=== PATIENT | female | born 1960 | race Caucasian/White ===

== ENCOUNTER → 2018-03-07 14:58 | Outpatient (CLI) | payer OTHER, SELFPAY ==
[2018-03-07 16:14] LABS: Vitamin D,25 Hydroxy 24.9 ng/mL (29.95-100.01)
[2018-03-07 16:16] LABS: T4 Free Direct 1.16 ng/dL (0.76-1.46); Thyroid Stim Hormone (TSH) 0.66 uIU/mL (0.358-3.74)
== END ==
PROVIDERS: Family Provider Family Medicine; PCP Family Medicine; Referring Provider Nurse Practitioner; Visit Provider Nurse Practitioner
DX: E03.9 Hypothyroidism, unspecified (principal); E55.9 Vitamin D deficiency, unspecified
CPT/HCPCS: 36415; 82306; 84439; 84443

== ENCOUNTER → 2018-06-09 14:31 | Outpatient (CLI) | payer OTHER, SELFPAY ==
--- NOTE | 2018-06-09 14:34 | BI_ITS ---
MAMMOGRAPHY - BILATERAL SCREENING REASON FOR EXAM: Female, 58 years old. Routine annual screening examination. PERTINENT HISTORY: Grandmother with breast cancer. TECHNIQUE: Digital bilateral breast ramiro (3D mammographic acquisition) in the CC and MLO projections. 2-D mediolateral oblique (MLO) and craniocaudad (CC) views of both breasts were obtained. CAD: Full Field Digital Mammography with Computer Added Detection was performed. COMPARISON: Comparison is made with prior study dated April 26, 2017 and April 24, 2016. FINDINGS: Breast Composition: The breasts are heterogeneously dense, which may obscure small masses. There are no dominant masses or suspicious calcifications. No other significant abnormalities are identified. There has been no significant change since the prior study. BI/SCREENING MAMM (CAD), BILAT IMPRESSION: Stable bilateral screening mammogram. Yearly follow-up mammogram recommended. (A) ASSESSMENT CATEGORY: BIRADS Category 1: Negative. A letter regarding these results will be sent to the patient by the facility within 30 days. Approximately 10% of breast cancers are not detected by mammography. A normal mammogram should not delay biopsy of a clinically suspicious abnormality. [id number] Electronically Signed: Orville Hammond MD at 9:13 EST Tel [phone], Service support ,
== END ==
PROVIDERS: Family Provider Family Medicine; PCP Family Medicine; Visit Provider Family Medicine
DX: Z12.31 Encounter for screening mammogram for malignant neoplasm of breast (principal)
CPT/HCPCS: 77063; 77067

== ENCOUNTER → 2018-07-07 13:45 | Outpatient (CLI) | payer OTHER, SELFPAY ==
--- NOTE | 2018-07-07 | ASPS_PTH ---
PATIENT: JAY ESTEVES [facility] U#:[id number] AGE/SX: 64/F ROOM: RE07/07/[address]: Dr. Akil Murillo MD : 1960 BED: DIS: SPEC #: [id number] RECD: 07/08/18 09:33 STATUS: NAEL EARLENE #: [id number] BETSY: 07/07/18 00:[address]: Akil Murillo DEPT: CYTOLOGY RECD BY: Fahad Jackson ENTERED: 07/08/18 09:33 SP TYPE: ASPIRATION OTHR DR: Dr. Mirna Abbott MD Tissues: Thyroid gland, NOS Procedures: Special Stain Group II Cytology Other HEADER OPERATION: Ultrasound-guided fine needle aspiration right thyroid PRE-OP DIAGNOSIS: Nontoxic multinodular goiter E04.2 TISSUE SUBMITTED: Fine needle aspiration right thyroid slides x12 DIAGNOSIS CYTOLOGY Right thyroid, ultrasound-guided FNA (smears): Suggestive of benign colloid nodule with cystic changes. See cytology study and comment. SJ:rg 07/11/18 COMMENT Correlation with clinical, radiologic findings and appropriate follow up are necessary. CYTOLOGY STUDY Slides are reviewed. The specimen is limited in evaluation due to lack of adequate number of follicular cells. The specimen predominantly consists of numerous macrophages, colloid and a few clusters of benign follicular cells. CYTOLOGY GROSS Received are 12 smears labeled with the patient's name and designated per the requisition as right thyroid. Submitted for staining. 07/08/18 TC:5 CPT: 08851
[2018-07-07 13:50] VITALS: BMI 28.8
== END ==
PROVIDERS: Family Provider Family Medicine; PCP Family Medicine; Referring Provider Surgery; Visit Provider Surgery
DX: E04.2 Nontoxic multinodular goiter (principal)
CPT/HCPCS: 88161; 88313

== ENCOUNTER → 2018-07-27 13:46 | Outpatient (CLI) | payer OTHER, SELFPAY ==
[2018-07-07 13:50] VITALS: BMI 28.8
--- NOTE | 2018-07-27 | ASPIG_PTH ---
PATIENT: JAY ESTEVES LOC: [facility]#:[id number] AGE/SX: 64/F ROOM: RE07/27/[address]: Dr. Akil Murillo MD : 1960 BED: DIS: SPEC #: [id number] RECD: 07/27/18 15:00 STATUS: NAEL HILLMANEllen #: [id number] BETSY: 07/27/18 00:[address]: Akil Murillo DEPT: CYTOLOGY RECD BY: Toni Florez ENTERED: 07/27/18 15:08 SP TYPE: ASP OUT OTHR DR: Dr. Mirna Abbott MD Tissues: Thyroid gland, NOS Procedures: FNA Specimen Adequacy Special Stain Group II Surgery Specimen Level IV Cytology Other HEADER OPERATION: Ultrasound-guided right thyroid biopsy/FNA PRE-OP DIAGNOSIS: TISSUE SUBMITTED: FNA right thyroid DIAGNOSIS CYTOLOGY Right thyroid, ultrasound guided FNA, direct smears and cell block: Negative for malignant cells. Findings suggestive of benign colloid nodule with cystic change (nodular goiter). See cytology study and comment. CE:tim 07/28/18 COMMENT The specimen is evaluated at the time of FNA by Dr. Rodriguez. Immediate Evaluation = Adequate for evaluation. Follicular cells present. Correlation with clinical, radiologic findings and appropriate follow up are necessary. Case has been reviewed in consultation with Dr. Rodriguez who concurs with the above diagnosis. IDC:BRIDGETTE CYTOLOGY STUDY Slides are reviewed. Specimen is satisfactory for evaluation. Direct smears demonstrate numerous groups of benign follicular cells, histiocytes, abundant colloid and peripheral blood. CYTOLOGY GROSS Received in three passes is 0.3 ml of bloody fluid labeled with the patient's name, and designated right thyroid. Six imprints and five paps are made from the submitted fluid and the rest is added to CytoLyt for cell block preparation. Submitted for cytology study. / BRIDGETTE:tim 07/27/18 TC: 5 CPT: 78006, 17006, 32074
--- NOTE | 2018-07-27 13:54 | US_ITS ---
CLINICAL HISTORY: Female, 58 years old. Right thyroid nodule biopsy. Under direct sonographic guidance, the surgeon performed 3 aspiration biopsies of the 1.3 cm x 1 cm x 0.7 cm nodule in the inferior aspect of the right lobe of the thyroid. US/FNA 1st Biopsy w/ US IMPRESSION: Ultrasound guided biopsy of the thyroid nodule in the inferior lobe. Electronically Signed: Orville Hammond, at 14:47 EST , Service support ,
== END ==
PROVIDERS: Family Provider Family Medicine; PCP Family Medicine; Referring Provider Surgery; Visit Provider Surgery
DX: E03.9 Hypothyroidism, unspecified (principal)
CPT/HCPCS: 10005; 88161; 88172; 88305; 88313

== ENCOUNTER → 2019-06-12 16:16 | Outpatient (CLI) | payer OTHER, SELFPAY ==
[2018-07-07 13:50] VITALS: BMI 28.8
--- NOTE | 2019-06-12 16:22 | BI_ITS ---
MAMMOGRAPHY - BILATERAL SCREENING REASON FOR EXAM: Female, 59 years old. Routine annual screening examination. PERTINENT HISTORY: Grandmother with breast cancer. TECHNIQUE: Digital bilateral breast robel (3D mammographic acquisition) in the CC and MLO projections. 2-D mediolateral oblique (MLO) and craniocaudad (CC) views of both breasts were obtained. CAD: Full Field Digital Mammography with Computer Added Detection was performed. COMPARISON: Comparison is made with prior study dated June 09, 2018 and April 26, 2017. FINDINGS: Breast Composition: The breasts are heterogeneously dense, which may obscure small masses. There are no dominant masses or suspicious calcifications. No other significant abnormalities are identified. There has been no significant change since the prior study. BI/SCREEN MAMM (CAD) W/ROBEL BILAT IMPRESSION: Stable bilateral screening mammogram. Yearly follow-up mammogram recommended. (A) ASSESSMENT CATEGORY: BIRADS Category 1: Negative. A letter regarding these results will be sent to the patient by the facility within 30 days. Approximately 10% of breast cancers are not detected by mammography. A normal mammogram should not delay biopsy of a clinically suspicious abnormality. [id number] Electronically Signed: Orville Hammond, at 8:26 EST , Service support ,
== END ==
PROVIDERS: Family Provider Family Medicine; PCP Family Medicine; Referring Provider Family Medicine; Visit Provider Family Medicine
DX: Z12.31 Encounter for screening mammogram for malignant neoplasm of breast (principal)
CPT/HCPCS: 77063; 77067

== ENCOUNTER → 2019-06-19 16:44 | Outpatient (CLI) | payer OTHER, SELFPAY ==
[2018-07-07 13:50] VITALS: BMI 28.8
[2019-06-19 17:49] LABS: T4 Free Direct 1.17 ng/dL (0.76-1.46); Thyroid Stim Hormone (TSH) 1.67 uIU/mL (0.358-3.74)
== END ==
PROVIDERS: PCP Family Medicine; Referring Provider Internal Medicine Endocrinology, Diabetes & Metabolism; Visit Provider Internal Medicine Endocrinology, Diabetes & Metabolism
DX: E03.9 Hypothyroidism, unspecified (principal)
CPT/HCPCS: 36415; 84439; 84443

== ENCOUNTER → 2019-10-04 16:03 | Outpatient (CLI) | payer OTHER, SELFPAY ==
[2019-06-19 16:50] VITALS: BMI 28.8
--- NOTE | 2019-10-04 16:06 | RAD_ITS ---
STUDY: X-RAY - RIGHT FOOT CLINICAL: Female, 59 years old. Pain. TECHNIQUE: 3 weightbearing view(s) of the foot. COMPARISON: None. FINDINGS: There is a plantar calcaneal spur. Normal talus and tarsal bones. Mild arthrosis of the visualized subtalar, talonavicular, calcaneocuboid, tarsal and tarsometatarsal articulations. Normal metatarsi. Normal metatarsophalangeal joint of the great toe. Normal tibial and fibular sesamoid bones. Normal interphalangeal joint of the great toe. Normal phalanges of the great toe. Normal second through fifth metatarsophalangeal joints. Normal interphalangeal joints of the lesser toes. There is a remote fracture of the medial base of the second proximal phalanx. The remainder of the phalanges of the lesser toes appear grossly normal. The soft tissue structures are unremarkable. RAD/Foot min 3 Views IMPRESSION: Degenerative changes of the right foot. Electronically Signed: Ashvin Carpenter DO at 16:57 EDT Tel [phone], Service support ,
== END ==
PROVIDERS: PCP Family Medicine; Referring Provider Family Medicine; Visit Provider Family Medicine
DX: S92.414A Nondisplaced fracture of proximal phalanx of right great toe, initial encounter for closed fracture (principal); S92.514A Nondisplaced fracture of proximal phalanx of right lesser toe(s), initial encounter for closed fracture; S92.344A Nondisplaced fracture of fourth metatarsal bone, right foot, initial encounter for closed fracture; S90.31XA Contusion of right foot, initial encounter; S50.02XA Contusion of left elbow, initial encounter; M19.071 Primary osteoarthritis, right ankle and foot
CPT/HCPCS: 73630

== ENCOUNTER → 2019-12-29 16:21 | Outpatient (CLI) | payer OTHER, SELFPAY ==
[2019-06-19 16:50] VITALS: BMI 28.8
--- NOTE | 2019-12-29 16:24 | RAD_ITS ---
STUDY: X-RAY - LEFT ANKLE REASON FOR EXAM: Female, 59 years old. left ankle pain and swelling x 3 days, swelling got very bad yesterday -- no injury TECHNIQUE: 3 view(s) of the ankle. COMPARISON: None. FINDINGS: Normal visualized distal tibia and fibula. Normal medial and lateral malleoli. Normal tibiotalar articulation and ankle mortise. Normal visualized talus and calcaneus. Large plantar spur of the calcaneus. The visualized subtalar, talonavicular, calcaneocuboid and tarsal articulations are normal. Diffuse soft tissue swelling. RAD/Ankle min 3 Views IMPRESSION: Soft tissue injury without underlying fracture or dislocation. Large plantar spur of the calcaneus. Electronically Signed: Jessica Qureshi MD at 20:41 EDT , Service support ,
== END ==
PROVIDERS: PCP Family Medicine; Referring Provider Family Medicine; Visit Provider Family Medicine
DX: M25.572 Pain in left ankle and joints of left foot (principal)
CPT/HCPCS: 73610

== ENCOUNTER → 2020-03-18 16:25 | Outpatient (CLI) | payer OTHER, SELFPAY ==
[2019-06-19 16:50] VITALS: BMI 28.8
[2020-03-18 18:43] LABS: Vitamin D,25 Hydroxy 36.9 ng/mL
[2020-03-18 18:57] LABS: T4 Total, Thyroxin 10.1 ug/dL (4.8-13.9); Thyroid Stim Hormone (TSH) 1.35 uIU/mL (0.358-3.74)
[2020-03-21 21:35] LABS: HPV Reflexed? NOT INDICATED
== END ==
PROVIDERS: PCP Family Medicine; Visit Provider Family Medicine
DX: E03.9 Hypothyroidism, unspecified (principal); E55.9 Vitamin D deficiency, unspecified
CPT/HCPCS: 36415; 82306; 84436; 84443; 88175; G0145

== ENCOUNTER 2020-09-12 11:28 | Outpatient (RCR) | payer OTHER, SELFPAY ==
[2020-06-18 15:59] VITALS: BMI 31.1
== END 2020-11-05 23:59 ==
LOC: IMMUN 11:28
PROVIDERS: PCP Family Medicine; Referring Provider Family Medicine; Visit Provider Family Medicine
DX: Z23 Encounter for immunization (principal)
CPT/HCPCS: 0001A; 0002A; 91300

== ENCOUNTER → 2020-11-27 06:58 | Outpatient (CLI) | payer OTHER, SELFPAY ==
[2020-06-18 15:59] VITALS: BMI 31.1
--- NOTE | 2020-11-26 16:18 | BI_ITS ---
MAMMOGRAPHY - BILATERAL SCREENING REASON FOR EXAM: Female, 60 years old. Routine annual screening examination. PERTINENT HISTORY: Grandmother with breast cancer. TECHNIQUE: Digital bilateral breast robel (3D mammographic acquisition) in the CC and MLO projections. 2-D mediolateral oblique (MLO) and craniocaudad (CC) views of both breasts were obtained. CAD: Full Field Digital Mammography with Computer Added Detection was performed. COMPARISON: Comparison is made with prior study dated 06/12/2019 and 06/09/2018. FINDINGS: Breast Composition: The breasts are heterogeneously dense, which may obscure small masses. There are no dominant masses or suspicious calcifications. No other significant abnormalities are identified. There has been no significant change since the prior study. BI/SCRN MAMM (CAD)W/ROBEL BILAT IMPRESSION: Stable bilateral screening mammogram. Yearly follow-up mammogram recommended. (A) ASSESSMENT CATEGORY: BIRADS Category 1: Negative. A letter regarding these results will be sent to the patient by the facility within 30 days. Approximately 10% of breast cancers are not detected by mammography. A normal mammogram should not delay biopsy of a clinically suspicious abnormality. [id number] Electronically Signed: Orville Hammond MD at 8:07 EDT , Service support ,
== END ==
PROVIDERS: PCP Family Medicine; Referring Provider Family Medicine; Visit Provider Family Medicine
DX: Z12.31 Encounter for screening mammogram for malignant neoplasm of breast (principal); Z80.3 Family history of malignant neoplasm of breast
CPT/HCPCS: 77063; 77067

== ENCOUNTER → 2020-12-26 16:17 | Outpatient (CLI) | payer OTHER, SELFPAY ==
[2020-06-18 15:59] VITALS: BMI 31.1
[2020-12-26 17:11] LABS: Absolute Lymphocyte Count 2.23 X10^3/uL (0.83-4.51); Absolute Neutrophil Count 5.6 X10^3/uL (2.0-7.7); Basophil# 0.05 X10^3/uL; Basophil% 0.6 % (0-1); Eosinophil# 0.18 X10^3/uL; Eosinophils% 2.1 % (0-5); Hematocrit 39.7 % (37-47); Hemoglobin 12.9 g/dL (12.0-15.0); Lymphocyte # 2.23 X10^3/ul (0.83-4.51); Lymphocyte % 25.4 % (19-41); Mean Corp Hgb Conc 32.5 g/dL (32-36); Mean Corpuscular Hgb 29.8 pg (27.0-32.0); Mean Corpuscular Volume 91.7 fL (81-99); Mean Platelet Vol. 11.3 fl (6.2-12.0); Monocyte# 0.63 X10^3/uL; Monocyte% 7.2 % (0-10); NRBC Flagged by Analyzer 0 % (0-5); Neutrophil # 5.63 X10^3/uL (2.7-7.7); Neutrophil % 64.1 % (47-70); Platelet Count 300 K/mm3 (150-450); RBC Distribution Width SD 40.8 fl (35.1-43.9); Red Blood Count 4.33 M/mm3 (4.2-5.4); White Blood Count 8.8 K/mm3 (4.4-11.0)
[2020-12-26 17:44] LABS: Albumin, Serum 3.9 g/dL (3.2-5.0); Anion Gap 8 (5-15); BUN 14 mg/dL (7-18); BUN/Creat Ratio 21.5 RATIO (10-20); Calcium,Total 8.8 mg/dL (8.5-10.1); Chloride 106 mmol/L (98-107); Creatinine, Serum 0.65 mg/dL (0.55-1.02); EST Glomerular Filtration Rate 99 mL/min (>60); Est Glom Filt Rate - Afr Amer 119 mL/min (>60); Glucose 91 mg/dL (74-106); Potassium 3.5 mmol/L (3.5-5.1); Sodium Level 141 mmol/L (136-145)
== END ==
PROVIDERS: PCP Family Medicine; Referring Provider Physician Assistant Surgical; Visit Provider Physician Assistant Surgical
DX: Z01.812 Encounter for preprocedural laboratory examination (principal)
CPT/HCPCS: 36415; 80048; 82040; 85025

== ENCOUNTER → 2020-12-27 15:57 | Outpatient (CLI) | payer OTHER, SELFPAY ==
[2020-06-18 15:59] VITALS: BMI 31.1
--- NOTE | 2020-12-27 16:02 | EKG12_ITS ---
Test Reason : PREOP Blood Pressure : / mmHG Vent. Rate : 089 BPM Atrial Rate : 089 BPM P-R Int : 130 ms QRS Dur : 086 ms QT Int : 376 ms P-R-T Axes : 048 -05 011 degrees QTc Int : 457 ms Normal sinus rhythm Normal ECG Confirmed by JOLENE CAPONE, CARLOS ([id number]), digital editor YOSI MCFADDEN ([id number]) on 01/02/2021 1:17:41 PM Referred By: Nate Red Confirmed By:CARLOS FERNÁNDEZ MD
== END ==
PROVIDERS: PCP Family Medicine; Referring Provider Specialist; Visit Provider Specialist
DX: Z01.810 Encounter for preprocedural cardiovascular examination (principal)
CPT/HCPCS: 93005

== ENCOUNTER → 2021-03-19 15:34 | Outpatient (CLI) | payer OTHER, SELFPAY ==
[2021-03-19 18:02] LABS: T4 Total, Thyroxin 11.4 ug/dL (4.8-13.9); Thyroid Stim Hormone (TSH) 0.48 uIU/mL (0.358-3.74)
== END ==
PROVIDERS: PCP Family Medicine; Referring Provider Family Medicine; Visit Provider Family Medicine
DX: E03.9 Hypothyroidism, unspecified (principal)
CPT/HCPCS: 36415; 84436; 84443

== ENCOUNTER → 2021-09-25 | Outpatient (CLI) | payer BC, SELFPAY ==
[2021-09-25 17:27] LABS: Absolute Lymphocyte Count 2.15 X10^3/uL (0.83-4.51); Absolute Neutrophil Count 5.2 X10^3/uL (2.0-7.7); Basophil# 0.04 X10^3/uL; Basophil% 0.5 % (0-1); Eosinophil# 0.15 X10^3/uL; Eosinophils% 1.9 % (0-5); Hematocrit 39.9 % (37-47); Lymphocyte # 2.15 X10^3/ul (0.83-4.51); Lymphocyte % 26.7 % (19-41); Mean Corp Hgb Conc 32.6 g/dL (32-36); Mean Corpuscular Hgb 30.2 pg (27.0-32.0); Mean Corpuscular Volume 92.8 fL (81-99); Monocyte# 0.54 X10^3/uL; Monocyte% 6.7 % (0-10); NRBC Flagged by Analyzer 0 % (0-5); Neutrophil # 5.15 X10^3/uL (2.7-7.7); Neutrophil % 63.8 % (47-70); Platelet Count 313 K/mm3 (150-450); RBC Distribution Width CV 12.9 % (11.6-14.6); RBC Distribution Width SD 43.7 fl (35.1-43.9); White Blood Count 8.1 K/mm3 (4.4-11.0)
[2021-09-25 17:57] LABS: ALB/GLOB Ratio 0.9 RATIO (0.9-2.4); AST(SGOT) 23 U/L (15-37); Alanine Aminotransfer ALT/SGPT 43 U/L (13-56); Albumin, Serum 3.9 g/dL (3.2-5.0); Alkaline Phosphatase 79 U/L (45-117); Anion Gap 5 (5-15); BUN 11 mg/dL (7-18); CRP 4.74 mg/L (0.0-3.0); Calcium,Total 8.7 mg/dL (8.5-10.1); Chloride 106 mmol/L (98-107); Creatinine, Serum 0.69 mg/dL (0.55-1.02); EST Glomerular Filtration Rate 93 mL/min (>60); Est Glom Filt Rate - Afr Amer 112 mL/min (>60); Globulin 4.5 g/dL (2.2-4.2); Glucose 86 mg/dL (74-106); Potassium 3.7 mmol/L (3.5-5.1); Protein, Total 8.4 g/dL (6.4-8.2); Sodium Level 139 mmol/L (136-145); Uric Acid 5.7 mg/dL (2.6-6.0)
[2021-09-25 17:58] LABS: Erythrocyte Sedimentation Rate 23 mm/hr (0-30)
[2021-09-25 18:31] LABS: Hemoglobin A1c 5.5 % (3.8-5.6)
[2021-09-29 16:03] LABS: ANTINUCLEAR ANTIBODIES DIRECT Negative (Negative)
[2021-09-30 11:07] LABS: CCP IgG Antibodies 6 units (0-19)
== END | disposition home or self-care (01) ==
LOC: MTLAB 16:17
PROVIDERS: PCP Family Medicine; Referring Provider Podiatrist; Visit Provider Podiatrist
DX: M19.071 Primary osteoarthritis, right ankle and foot (principal); M19.072 Primary osteoarthritis, left ankle and foot
CPT/HCPCS: 36415; 80053; 82306; 83036; 84550; 85025; 85652; 86038; 86140; 86200; 86431

== ENCOUNTER → 2021-12-02 | Outpatient (CLI) | payer BC, SELFPAY ==
--- NOTE | 2021-12-02 16:37 | BI_ITS ---
MAMMOGRAPHY - BILATERAL SCREENING REASON FOR EXAM: Female, 61 years old. Routine annual screening examination. PERTINENT HISTORY: Grandmother with breast cancer. TECHNIQUE: Digital bilateral breast robel (3D mammographic acquisition) in the CC and MLO projections. 2-D mediolateral oblique (MLO) and craniocaudad (CC) views of both breasts were obtained. CAD: Full Field Digital Mammography with Computer Added Detection was performed. COMPARISON: Comparison is made with prior study dated 11/26/2020 and 06/12/2019. FINDINGS: Breast Composition: The breasts are heterogeneously dense, which may obscure small masses. There are no dominant masses or suspicious calcifications. No other significant abnormalities are identified. There has been no significant change since the prior study. BI/SCRN MAMM (CAD)W/ROBEL BILAT IMPRESSION: Stable bilateral screening mammogram. Yearly follow-up mammogram recommended. (A) ASSESSMENT CATEGORY: BIRADS Category 1: Negative. A letter regarding these results will be sent to the patient by the facility within 30 days. Approximately 10% of breast cancers are not detected by mammography. A normal mammogram should not delay biopsy of a clinically suspicious abnormality. [id number] Electronically Signed: Orville Hammond MD at 8:21 EDT ,
== END | disposition home or self-care (01) ==
LOC: OPBI 12-03 06:58
PROVIDERS: PCP Family Medicine; Referring Provider Family Medicine; Visit Provider Family Medicine
DX: Z12.31 Encounter for screening mammogram for malignant neoplasm of breast (principal); Z80.3 Family history of malignant neoplasm of breast
CPT/HCPCS: 77063; 77067

== ENCOUNTER → 2022-03-03 | Outpatient (CLI) | payer BC, SELFPAY ==
[2022-03-03 11:34] LABS: Absolute Lymphocyte Count 0.99 X10^3/uL (0.83-4.51); Absolute Neutrophil Count 11.7 X10^3/uL (2.0-7.7); Basophil# 0.04 X10^3/uL; Basophil% 0.3 % (0-1); Eosinophil# 0.01 X10^3/uL; Eosinophils% 0.1 % (0-5); Hematocrit 43.1 % (37-47); Hemoglobin 13.8 g/dL (12.0-15.0); Lymphocyte # 0.99 X10^3/ul (0.83-4.51); Lymphocyte % 7.5 % (19-41); Mean Corpuscular Hgb 30.2 pg (27.0-32.0); Mean Corpuscular Volume 94.3 fL (81-99); Mean Platelet Vol. 10.8 fl (6.2-12.0); Monocyte# 0.52 X10^3/uL; Monocyte% 3.9 % (0-10); NRBC Flagged by Analyzer 0 % (0-5); Neutrophil # 11.66 X10^3/uL (2.7-7.7); Neutrophil % 87.9 % (47-70); Platelet Count 313 K/mm3 (150-450); RBC Distribution Width CV 12.1 % (11.6-14.6); RBC Distribution Width SD 41.6 fl (35.1-43.9); Red Blood Count 4.57 M/mm3 (4.2-5.4); White Blood Count 13.3 K/mm3 (4.4-11.0)
== END | disposition home or self-care (01) ==
LOC: PAVLAB 11:20
PROVIDERS: PCP Family Medicine; Referring Provider Surgery; Visit Provider Surgery
DX: R10.9 Unspecified abdominal pain (principal); K92.1 Melena
CPT/HCPCS: 36415; 85025

== ENCOUNTER → 2022-03-06 | Outpatient (CLI) | payer BC, SELFPAY ==
--- NOTE | 2022-03-06 06:43 | CT_ITS ---
STUDY: CT ABDOMEN AND PELVIS WITH CONTRAST REASON FOR EXAM: Female, 61 years old. Abdominal pain -- Oral and IV contrast. Rectal bleeding and cramping x 5 days. RADIATION DOSAGE (If Supplied By Facility): CTDIvol = ( 16.34 ) mGy, DLP = ( 1239.06 ) mGycm TECHNIQUE: Transaxial images were obtained from the dome of the diaphragm to the symphysis pubis with oral contrast. Oral and amp; 100mL Isovue-300 was administered. Sagittal and coronal images were reconstructed. Individualized dose optimization techniques were used for this CT. COMPARISON: None. FINDINGS: The visualized lung bases are unremarkable. The visualized portions of the heart are within normal limits. There is decreased attenuation of the liver consistent with steatosis. Normal gallbladder and extrahepatic biliary system. Normal spleen. Normal pancreas. Normal bilateral adrenal glands. There is malrotation of the right kidney with the anterior facing of the renal pelvis. There is a 1.9 cm cyst in the upper pole of the left kidney. Normal visualized stomach. Normal small intestine. There is evidence of circumferential wall thickening and increased markings in the surrounding peritoneal fat involving the distal portion of the transverse colon in the left hemicolon. Colitis should be ruled out. There is also evidence of a multiple sigmoid diverticula. The appendix is visualized and appears normal. Normal abdominal aorta. Normal inferior vena cava. Normal retroperitoneum. Normal urinary bladder. There is a complex solid and cystic nodule in the left adnexa measuring 4.4 cm by 3.9 cm. This may represent a pedunculated fibroid. Correlation with ultrasound is recommended. Normal abdominal wall. There are degenerative changes of the visualized lumbar spine. There is loss of the normal lumbar lordosis. CT/Abdomen/Pelvis WITH Contrast IMPRESSION: Findings in keeping with a colitis of the distal transverse colon and left hemicolon. 4.4 cm x 3.9 cm complex solid and cystic nodule in the left adnexa. This may be related to either ovarian pathology or pedunculated fibroid. Correlation with ultrasound is recommended. Electronically Signed: Orville Hammond MD at 10:18 EDT ,
[2022-03-06 07:11] LABS: CREATININE FINGERSTICK < 0.9 mg/dL (0.55-1.02); EGFR FINGERSTICK > 60.0000 mL/min (>60)
== END | disposition home or self-care (01) ==
LOC: CT 06:37
PROVIDERS: PCP Family Medicine; Referring Provider Surgery; Visit Provider Surgery
DX: N83.292 Other ovarian cyst, left side (principal); K62.5 Hemorrhage of anus and rectum; R10.9 Unspecified abdominal pain
CPT/HCPCS: 74177; Q9967

== ENCOUNTER → 2022-03-13 | Outpatient (CLI) | payer BC, SELFPAY ==
--- NOTE | 2022-03-13 11:13 | US_ITS ---
STUDY: ULTRASOUND TRANSVAGINAL CLINICAL: Female, 61 years old. ADNEXAL MASS ON CT TECHNIQUE: Transvaginal COMPARISON: CT 03/06/2022 FINDINGS: Normal uterine size measuring 6.8 x 3.4 x 4.8 cm in maximal craniocaudal dimension. Endometrial thickness 3 mm. There is a fibroid uterus visualized. There is a 2.3 x 2.3 x 1.6 cm fibroid. There is a second fibroid 2.2 x 2.5 x 3.4 cm. Abnormality is suggested in the right adnexal region but this does not correspond to CT findings. Normal endometrial thickness measuring mm. There are no endometrial masses, and there is no fluid in the endometrial cavity. Normal uterine cervix. Ovaries are not visualized. There is no free fluid in the pelvis. Polycystic ovary disease: No. US/Transvaginal Non- IMPRESSION: Fibroid uterus. The larger fibroid measures 3.4 x 2.2 x 2.5 cm and is seen in the mid body. This likely corresponds to ultrasound findings. Left adnexal Mass. Consider less likely. Ovaries not visualized. Normal variant nabothian cyst at the cervix. Electronically Signed: Mu Watkins MD, ADARSH at 17:05 EDT ,
== END | disposition home or self-care (01) ==
LOC: US 11:11
PROVIDERS: PCP Family Medicine; Referring Provider Family Medicine; Visit Provider Family Medicine
DX: N83.8 Other noninflammatory disorders of ovary, fallopian tube and broad ligament (principal); N88.8 Other specified noninflammatory disorders of cervix uteri; D25.9 Leiomyoma of uterus, unspecified
CPT/HCPCS: 76830

== ENCOUNTER → 2022-03-30 | Outpatient (CLI) | payer BC, SELFPAY ==
[2022-03-30 19:33] LABS: Cholesterol 183 mg/dL (200); High Density Lipoprotein 42 mg/dL; T4 Total, Thyroxin 12.7 ug/dL (4.8-13.9); Thyroid Stim Hormone (TSH) 0.54 uIU/mL (0.358-3.74); Triglycerides 239 mg/dL; Very Low Density Lipoprotein 48 mg/dL (5-40)
== END | disposition home or self-care (01) ==
LOC: MFPLAB 16:32
PROVIDERS: PCP Family Medicine; Visit Provider Family Medicine
DX: Z00.00 Encounter for general adult medical examination without abnormal findings (principal); E03.9 Hypothyroidism, unspecified
CPT/HCPCS: 36415; 80061; 84436; 84443

== ENCOUNTER 2022-04-09 06:42 | Day surgery (SDC) | payer BC, SELFPAY ==
[2022-04-09] VITALS (7 sets, daily range): BP systolic 100–129; BP diastolic 61–68; PULSE 61–86; RESP 18; TEMP 36.6–37; O2SAT 97–100; BMI 29.7
--- NOTE | 2022-04-09 | COLBX_PTH ---
PATIENT: JAY ESTEVES LOC: [facility] U#:[id number] AGE/SX: 61/F ROOM: RE04/09/[address]: Dr. Bernadette Forbes MD : 1960 BED: DIS: 04/09/2022 SPEC #: [id number] RECD: 04/09/22 10:34 STATUS: NAEL REEllen #: [id number] BETSY: 04/09/22 00:[address]: Bernadette Forbes DEPT: SURGICAL PATHOLOGY RECD BY: Fahad Jackson ENTERED: 04/09/22 10:35 SP TYPE: COLON BX OTHR DR: MD Dr. Spencer Hicks MD Tissues: A - SPLENIC FLEXURE B - Descending colon C - Rectum, NOS Procedures: Surgery Specimen Level IV HEADER OPERATION: Colonoscopy with polypectomy (MAC) PRE-OP DIAGNOSIS: Colitis, blood in stool TISSUE SUBMITTED: A ? Splenic flexure polyp, B ? Descending colon polyp, C ? Rectum colon polyp MICROSCOPIC DIAGNOSIS A. Splenic flexure polyp, biopsy: Tubular adenoma. B. Descending colon polyp, biopsy: Fragments of hyperplastic polyp. C. Rectum polyp, biopsy: Hyperplastic polyp. BRIDGETTE:tim 04/10/2022 MICROSCOPIC DESCRIPTION Slides are reviewed. GROSS DESCRIPTION A - Received in fixative is one container labeled with the patient's name and designated splenic flexure polyp. The specimen consists of one irregular fragment of light sharpe soft tissue that measures 0.3 x 0.3 x 0.1 cm. The specimen is totally submitted in one cassette. B - Received in fixative is one container labeled with the patient's name and designated descending colon polyp. The specimen consists of two irregular fragments of light sharpe soft tissue that in aggregate measure 0.8 x 0.4 x 0.1 cm. The specimen is totally submitted in one cassette. C - Received in fixative is one container labeled with the patient's name and designated rectum colon polyp. The specimen consists of multiple irregular fragments of light sharpe soft tissue that in aggregate measure 0.5 x 0.3 x 0.1 cm. The specimen is totally submitted in one cassette. / BRIDGETTE:tim 04/09/2022 TC:1 CPT: 83139 x3
[2022-04-09] MEDS: Lactated Ringers 1,000 ML 15 ML IV (07:28)
--- NOTE | 2022-04-09 07:44 | HP.PCM_ITS ---
History and Physical Date of Admission: 04/09/22 Date of Service:? 03/17/22 MR#: [id number] Acct: [id number] Name:MANOLO SPARKS Rep #: [id number] : 1960 ? ? Provider: Dr. Spencer Polk MD Age/Sex:? 61/F ? ? 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 Is patient in pain?: No Allergies Antihistamines - Alkylamine Adverse Reaction (Intermediate, Verified 03/17/22 09:42) dizzy Medications venlafaxine 75 mg tablet 75 mg PO DAILY 02/21/18 [History Confirmed 03/17/22] cholecalciferol (vitamin D3) 25 mcg (1,000 unit) capsule 1,000 unit PO DAILY 04/07/19 [History Confirmed 03/17/22] multivitamin with minerals (Hair,Skin and Nails tablet) 2 tab PO TID 04/07/19 [History Confirmed 03/17/22] levothyroxine 125 mcg tablet (Levoxyl) 125 mcg PO QDAY #90 tabs 07/01/21 [Rx Confirmed 03/17/22] ascorbate calcium (vitamin C) 500 mg tablet 500 mg PO DAILY 03/03/22 [History Confirmed 03/17/22] biotin 1 mg capsule 1 mg PO DAILY 03/03/22 [History Confirmed 03/17/22] Is last menstrual period known: No Post menopausal: Yes Patient : No PFSH Medical History?(Updated 03/17/22 @ 16:[address] Spencer Polk MD) Arthritis Hypothyroidism Vitamin D deficiency Family History? Mother CancerFather Heart disease Social History? Smoking Status:? Never smoker second hand exposure:? No alcohol intake:? never substance use type:? does not use HPI HPI HPI: Patient is 61-year-old female who follows up for symptoms related to her diagnosis of colitis.? This is her second visit following a initial surgical consultation on 03/03/2022.? She reports that she feels 100% better.? By this she clarifies that she has not had any additional abdominal pain for at least the last 1 week.? She denies any cramping.? She has not noticed any further bleeding with bowel movements.? She has noticed a dramatic improvement in her gas and bloating symptoms as well.? She confirms that she has done this through initiation of a bland diet and starting a probiotic.? She does complain that she is having pizza withdrawals and is eager to start a bit more exciting diet.? She does report approximately 10 pound weight loss since this all began. Below is recapitulated from patient's initial consultation for ease of review: Patient is a 61-year-old female who presents for recent crampy abdominal pain as well as bloody bowel movements that started yesterday.? She also presents with need to schedule screening colonoscopy secondary to time lapse since her last colonoscopy in 2011.? They are self-referred.? As above, patient has had prior colonoscopy in 2012 through the [facility].? The results of the scope are not officially available, however patient presents with her mother and neither patient nor her mother remember any remarkable findings been discussed.? According to their recollection a 10-year follow-up was recommended, however other documentation provided suggest that a 5-year recommendation was given.? Patient has no personal history of diverticulitis, inflammatory bowel disease, or colon cancer. They describe their bowel habits as generally normal.? They have approximately a couple of bowel movements per day and spend roughly 5 minutes on the toilet without significant straining.? They do not have a history of hemorrhoids.? They do not notice any tissue protruding with bowel movements.? They have no perianal pain with bowel movements.? There is no perianal itching either.? As above, patient has noticed some bright red blood per rectum and clots.? She states there has not been any stool, but just small clots of blood when she goes to the bathroom.? She describes her abdominal pain as remaining localized to the lower abdominal quadrants.? Associated with this she has noticed some mild nausea, but otherwise has felt well.? He specifically denies any fevers or chills.? She denies any recent fatigue (other than not sleeping well last night).? She also denies any weakness or lightheadedness. The patient's weight is stable. The patient is not prescribed anticoagulants/blood thinners. Relevant prior abdominal surgical history includes: None applicable Patient has a family history of colon cancer in her maternal grandmother.? She believes this diagnosis came at age 71 for her grandmother.? There is no other diagnosis of diverticulitis or inflammatory bowel disease for her family history that she can recall.? ? Regarding her other GI function, Ms. Bowles confirms a history of very intermittent heartburn.? She experiences this approximately 1 time per month.? In approximately once every 6 months wakes up tasting acid.? She has no history of tobacco use. Exam Const General: cooperative, comfortable and no acute distress GI Other: Nondistended, soft, nontender to light and deep palpation x4 quadrants Assessment and Plan Assessment and Plan (1) Colitis: ?Status:?Acute ?Comment: This is a 61-year-old female who initially presented at the beginning of the month with complaints of crampy abdominal pain and associated hematochezia.? CT imaging the abdomen pelvis from 03/06/2022 was consistent with segmental colitis beginning at the distal transverse and extending through the descending and sigmoid colon.? Patient reports significant symptomatic improvement with adoption of a bland diet and use of a probiotic.? In fact she denies any symptoms at present.? This is also translated into some weight loss.? At this time I am inclined to loosen patient's dietary restriction and she is permitted to slowly add back her usual dietary choices.? I would also like to resume planning for interval diagnostic colonoscopy.? Given that she has had about a week of symptom improvement, we will look for an additional 3 weeks before scheduling this procedure so as to minimize any risk with insufflation.? We reviewed the prep necessary for this procedure and answered all questions. We did confirm receipt of records from the [facility] for patient's 2012 colonoscopy which merely showed presence of small internal hemorrhoids and localized diverticulosis. ?Plan: ? Patient cleared to resume normal diet ? Patient encouraged to continue probiotic for the meantime ? Plan will be to complete colonoscopy on first mutually agreeable date under local MAC.? Pre-procedure prep discussed and paper instructions provided.? Patient is also made aware that she will need to have a driver/sales workers with her the day of the procedure. (2) Blood in stool: ?Status:?Acute ?Comment: Crampy abdominal pain and hematochezia complaints have resolved. Coding Level of Care Code Off vis,est,level 3 Diagnoses Colitis? K52.9 Blood in stool? K92.1 03/17/22 1045 <Electronically signed by Spencer Polk MD> Date Spencer Polk MD
--- NOTE | 2022-04-09 08:41 | OP.COLON_ITS ---
Patient Name: Judy Larose Procedure Date: 04/09/2022 7:58 AM Date of : 1960 Age: 61 Procedure: Colonoscopy Indications: Abnormal CT of the GI tract, Follow-up of colitis Providers: Bernadette Forbes MD Referring MD: Bernadette Forbes MD Medicines: Monitored Anesthesia Care Patient Profile: This is a 61 year old female. Last Colonoscopy: 2011. Complications: No immediate complications. Procedure: Pre-Anesthesia Assessment: - Prior to the procedure, a History and Physical was performed, and patient medications and allergies were reviewed. The patient's tolerance of previous anesthesia was also reviewed. The risks and benefits of the procedure and the sedation options and risks were discussed with the patient. All questions were answered, and informed consent was obtained. Prior Anticoagulants: The patient has taken no previous anticoagulant or antiplatelet agents. ASA Grade Assessment: Per anesthesia. After reviewing the risks and benefits, the patient was deemed in satisfactory condition to undergo the procedure. After I obtained informed consent, the scope was passed under direct vision. Throughout the procedure, the patient's blood pressure, pulse, and oxygen saturations were monitored continuously. The colonoscope was introduced through the anus and advanced to the cecum, identified by the appendiceal orifice, ileocecal valve and palpation. The colonoscopy was performed without difficulty. The patient tolerated the procedure well. The quality of the bowel preparation was good. Scope In: 8:11:23 AM Scope Withdrawal Time 0 hours 8 minutes 12 seconds Scope Out: 8:30:53 AM Total Procedure Duration Time 0 hours 19 minutes 30 seconds Findings: The perianal and digital rectal examinations were normal. Five sessile polyps were found in the rectum, descending colon and splenic flexure. The polyps were less than 5 mm in size. These polyps were removed with a cold biopsy forceps. Resection and retrieval were complete. Multiple small-mouthed diverticula were found in the sigmoid colon and descending colon. The exam was otherwise without abnormality on direct and retroflexion views. Impression: - Five less than 5 mm polyps in the rectum, in the descending colon and at the splenic flexure, removed with a cold biopsy forceps. Resected and retrieved. - Diverticulosis in the sigmoid colon and in the descending colon. - The examination was otherwise normal on direct and retroflexion views. Recommendation: - Discharge patient to home. - Resume previous diet. - Continue present medications. - Await pathology results. - Repeat colonoscopy in 5 years for surveillance based on pathology results. Procedure Code(s): --- Professional --- 90374, Colonoscopy, flexible; with biopsy, single or multiple Diagnosis Code(s): --- Professional --- K62.1, Rectal polyp D12.4, Benign neoplasm of descending colon D12.3, Benign neoplasm of transverse colon (hepatic flexure or splenic flexure) K52.9, Noninfective gastroenteritis and colitis, unspecified K57.30, Diverticulosis of large intestine without perforation or abscess without bleeding R93.3, Abnormal findings on diagnostic imaging of other parts of digestive tract CPT copyright 2017 [employer] [place] [employer]. All rights reserved. The codes documented in this report are preliminary and upon senior research executive review may be revised to meet current compliance requirements. MD Bernadette Ernst MD 04/09/2022 8:40:51 AM This report has been signed electronically. Number of Addenda: 0 Note Initiated On: 04/09/2022 7:58 AM
--- NOTE | 2022-04-09 08:41 | OP.CCLET_ITS ---
04/09/2022 Mirna Abbott [address] [place] [address] Re : Colonoscopy procedure for Judy Larose Dear Dr. Abbott This procedure was performed on March. My impressions and recommendations are as follows: Impressions : - Five less than 5 mm polyps in the rectum, in the descending colon and at the splenic flexure, removed with a cold biopsy forceps. Resected and retrieved. - Diverticulosis in the sigmoid colon and in the descending colon. - The examination was otherwise normal on direct and retroflexion views. Recommendations : - Discharge patient to home. - Resume previous diet. - Continue present medications. - Await pathology results. - Repeat colonoscopy in 5 years for surveillance based on pathology results. My findings are described in the full procedure note, which is enclosed. If I can be of further assistance, please feel free to contact me at Doctor phone number(s): , Work: . Sincerely, MD Bernadette Ernst MD 04/09/2022 8:40:51 AM This report has been signed electronically.
== END 2022-04-09 09:25 | disposition home or self-care (01) ==
LOC: EN 06:43 → AC 06:45
PROVIDERS: PCP Family Medicine; Referring Provider Family Medicine; Visit Provider Surgery
PROC: 0DJD8ZZ Inspection of Lower Intestinal Tract, Via Natural or Artificial Opening Endoscopic (ICD-10-PCS; CPT 45378; principal; 2022-04-09 07:55)
DX: D12.3 Benign neoplasm of transverse colon (principal); D12.4 Benign neoplasm of descending colon; K52.9 Noninfective gastroenteritis and colitis, unspecified; K62.1 Rectal polyp; K57.30 Diverticulosis of large intestine without perforation or abscess without bleeding; R93.3 Abnormal findings on diagnostic imaging of other parts of digestive tract; E03.9 Hypothyroidism, unspecified; E55.9 Vitamin D deficiency, unspecified; M19.90 Unspecified osteoarthritis, unspecified site; Z78.0 Asymptomatic menopausal state; Z79.899 Other long term (current) drug therapy; Z80.0 Family history of malignant neoplasm of digestive organs
CPT/HCPCS: 45380; 88305; J7120; J2405

== ENCOUNTER → 2022-11-10 | Outpatient (CLI) | payer BC, SELFPAY ==
[2022-11-10 17:40] LABS: Absolute Lymphocyte Count 2.19 X10^3/uL (0.83-4.51); Basophil# 0.07 X10^3/uL; Basophil% 0.9 % (0-1); Eosinophil# 0.17 X10^3/uL; Eosinophils% 2.1 % (0-5); Hematocrit 42.1 % (37-47); Hemoglobin 13.7 g/dL (12.0-15.0); Lymphocyte # 2.19 X10^3/ul (0.83-4.51); Lymphocyte % 26.8 % (19-41); Mean Corp Hgb Conc 32.5 g/dL (32-36); Mean Corpuscular Hgb 30.9 pg (27.0-32.0); Mean Corpuscular Volume 94.8 fL (81-99); Mean Platelet Vol. 11.5 fl (6.2-12.0); Monocyte# 0.69 X10^3/uL; Monocyte% 8.5 % (0-10); NRBC Flagged by Analyzer 0 % (0-5); Neutrophil # 5.01 X10^3/uL (2.7-7.7); Neutrophil % 61.3 % (47-70); Platelet Count 289 K/mm3 (150-450); RBC Distribution Width CV 12.4 % (11.6-14.6); RBC Distribution Width SD 42.9 fl (35.1-43.9); Red Blood Count 4.44 M/mm3 (4.2-5.4); White Blood Count 8.2 K/mm3 (4.4-11.0)
[2022-11-10 18:02] LABS: Ferritin 23 ng/mL (8-252); T4 Free Direct 1.18 ng/dL (0.76-1.46); Thyroid Stim Hormone (TSH) 1.35 uIU/mL (0.358-3.74)
== END | disposition home or self-care (01) ==
LOC: MFPLAB 16:23
PROVIDERS: PCP Family Medicine; Visit Provider Internal Medicine Endocrinology, Diabetes & Metabolism
DX: E61.1 Iron deficiency (principal); E03.9 Hypothyroidism, unspecified; E04.1 Nontoxic single thyroid nodule
CPT/HCPCS: 36415; 82728; 84439; 84443; 85025

== ENCOUNTER → 2022-12-15 | Outpatient (CLI) | payer BC, SELFPAY ==
--- NOTE | 2022-12-15 16:24 | BI_ITS ---
MAMMOGRAPHY - BILATERAL SCREENING 3-D TOMOSYNTHESIS REASON FOR EXAM: Female, 62 years old. Routine screening PERTINENT HISTORY: Grandmother with breast cancer.. TECHNIQUE: 2-D mammograms and 3-D Tomosynthesis of the breast (s) were performed. CAD was performed. COMPARISON: 11/26/2020 FINDINGS: The breast composition is heterogeneously dense that can obscure small breast masses. Scattered benign calcifications are seen. No dense spiculated masses or suspicious microcalcifications are identified. No architectural distortion is identified. There is no skin thickening or retraction. There has been no significant change since the prior study. BI/SCRN MAMM (CAD)W/ROBEL BILAT IMPRESSION: No mammographic signs of malignancy. Routine yearly mammograms recommended. ASSESSMENT CATEGORY: BIRADS Category 2: Benign. A letter regarding these results will be sent to the patient by the facility within 30 days. FOLLOW UP RECOMMENDATION: Yearly follow up mammogram recommended. (A) Approximately 10% of breast cancers are not detected by mammography. A normal mammogram should not delay biopsy of a clinically suspicious abnormality. Electronically Signed: Leonides Ware MD at 18:40 EDT ,
== END | disposition home or self-care (01) ==
LOC: OPBI 16:22
PROVIDERS: PCP Family Medicine; Referring Provider Family Medicine; Visit Provider Family Medicine
DX: Z12.31 Encounter for screening mammogram for malignant neoplasm of breast (principal)
CPT/HCPCS: 77063; 77067

== ENCOUNTER → 2023-12-20 | Outpatient (CLI) | payer BC, SELFPAY ==
--- NOTE | 2023-12-20 13:11 | BI_ITS ---
MAMMOGRAPHY - BILATERAL SCREENING REASON FOR EXAM: Female, 63 years old. Routine annual screening examination. PERTINENT HISTORY: Grandmother with breast cancer. TECHNIQUE: Digital bilateral breast robel (3D mammographic acquisition) in the CC and MLO projections. 2-D mediolateral oblique (MLO) and craniocaudad (CC) views of both breasts were obtained. CAD: Full Field Digital Mammography with Computer Added Detection was performed. COMPARISON: Comparison is made with prior study dated December 15, 2022 and December 02, 2021. FINDINGS: Breast Composition: The breasts are heterogeneously dense, which may obscure small masses. There are no dominant masses or suspicious calcifications. No other significant abnormalities are identified. There has been no significant change since the prior study. BI/SCRN MAMM (CAD)W/ROBEL BILAT IMPRESSION: Stable bilateral screening mammogram. Yearly follow-up mammogram recommended. (A) ASSESSMENT CATEGORY: BIRADS Category 1: Negative. A letter regarding these results will be sent to the patient by the facility within 30 days. Approximately 10% of breast cancers are not detected by mammography. A normal mammogram should not delay biopsy of a clinically suspicious abnormality. [id number] Electronically Signed: Orville Hammond MD at 13:49 EDT ,
== END | disposition home or self-care (01) ==
LOC: OPBI 13:11
PROVIDERS: PCP Family Medicine; Referring Provider Family Medicine; Visit Provider Family Medicine
DX: Z12.31 Encounter for screening mammogram for malignant neoplasm of breast (principal)
CPT/HCPCS: 77063; 77067

== ENCOUNTER → 2024-04-04 | Outpatient (CLI) | payer BC, SELFPAY ==
[2024-04-04 18:12] LABS: Vitamin D,25 Hydroxy 30.2 ng/mL
== END | disposition home or self-care (01) ==
LOC: MFPLAB 16:46
PROVIDERS: PCP Family Medicine; Visit Provider Family Medicine
DX: E03.9 Hypothyroidism, unspecified (principal); E55.9 Vitamin D deficiency, unspecified
CPT/HCPCS: 36415; 82306; 84436; 84443

== ENCOUNTER → 2025-03-02 | Outpatient (CLI) | payer BC, SELFPAY ==
--- NOTE | 2025-03-02 08:55 | BI_ITS ---
EXAM: DIAG MAMM W/CAD, BILAT 03/02/2025 CLINICAL HISTORY: F, Age 64 y/o , ABD MAMM TECHNIQUE: Procedure Code: [id number] Modality: MG Procedure: DIAG MAMM W/CAD, BILAT. COMPARISON: Prior exam(s) dated 12/20/2023, 12/15/2022, 12/02/2021, 11/26/2020. FINDINGS: TISSUE DENSITY: The breasts are heterogeneously dense, which may obscure small masses. Bilateral Breast Mammographic Findings: The patient presents with diffuse bilateral breast pain. There are no suspicious mammographic findings to account for the diffuse bilateral breast pain. No significant masses, calcifications or other abnormalities are identified in either breast. BI/DIAG MAMM W/CAD, BILAT IMPRESSION: There are no suspicious findings to account for the patient's diffuse bilateral breast pain. Clinical management is recommended for the pain. There is no evidence of malignancy in either breast. OVERALL FINAL ASSESSMENT BI-RADS 1: NEGATIVE RECOMMENDATION: Routine annual follow-up in 1 Year Additional Recommendation clinical management for the pain. A letter with findings and recommendations will be mailed to the patient. Reading Location: [id number]
== END | disposition home or self-care (01) ==
PROVIDERS: PCP Family Medicine; Referring Provider Nurse Practitioner Family; Visit Provider Nurse Practitioner Family
DX: N64.4 Mastodynia (principal); R92.8 Other abnormal and inconclusive findings on diagnostic imaging of breast
CPT/HCPCS: 77062; 77066; G0279

== ENCOUNTER 2025-04-11 08:13 | Outpatient (CLI) | payer BC, SELFPAY ==
[2025-04-11 10:48] LABS: Anion Gap 12 (5-15); BUN 17 mg/dL (4-19); BUN/Creat Ratio 25.3 RATIO (10-20); Calcium,Total 9.1 mg/dL (7.6-11.0); Carbon Dioxide 24.4 mmol/L (21.0-32.0); Chloride 105 mmol/L (98-108); Cholesterol 202 mg/dL (<=200); Glucose 98 mg/dL (70-99); Low Density Lipoprotein Calc. 124 mg/dL; Potassium 4.1 mmol/L (3.3-5.1); Triglycerides 185 mg/dL; Very Low Density Lipoprotein 37 mg/dL (5-40); cholesterol:hdl ratio screen 4.43
== END 2025-04-11 23:59 | disposition home or self-care (01) ==
LOC: MFPLAB 08:14
PROVIDERS: PCP Family Medicine; Visit Provider Nurse Practitioner Family
DX: Z13.1 Encounter for screening for diabetes mellitus (principal); Z13.220 Encounter for screening for lipoid disorders
CPT/HCPCS: 36415; 80048; 80061